=== PATIENT | female | born 1955 | race Caucasian/White ===

== ENCOUNTER 2018-03-24 08:00 | Inpatient (IN) ==
--- NOTE | 2018-03-17 14:58 | EKG Report ---
Test Performed on : 03/17/2018 2:30:49 PM Test Reason : PAT Blood Pressure : / mmHG Vent. Rate : 072 BPM Atrial Rate : 072 BPM P-R Int : 174 ms QRS Dur : 074 ms QT Int : 402 ms P-R-T Axes : 039 034 031 degrees QTc Int : 440 ms Normal sinus rhythm. Cannot rule out Anterior infarct (cited on or before 16-NOV-2017) Abnormal ECG When compared with ECG of 16-NOV-2017 10:20, Vent. rate has decreased BY 35 BPM Nonspecific T wave abnormality no longer evident in Lateral leads Confirmed by Kilo KHAN, Adrian Blanco ([id number]) on 03/18/2018 7:22:44 PM
[2018-03-17 15:12] LABS: URINE SOURCE CLEAN CATCH
[2018-03-17 15:14] LABS: EOS# 0.11 X1000 (0.0-0.7); EOS% 2.4 % (0.0-10.0); HEMOGLOBIN 12.6 g/dL (12.0-16.0); LYMPH# 1.12 X1000 (1.2-3.4); MCH 28.7 PG (27-31); MCHC 33.2 g/dL (33-37); MCV 86.6 FL (81-99); MONO# 0.33 X1000 (0.11-0.59); MONO% 7.1 % (1.7-9.3); MPV 9.8 FL (7.4-10.4); NEUT# 3.11 X1000 (1.4-6.5); NEUT% 66.5 % (42.2-75.2); PLT 269 X1000 (130-400); RBC 4.39 XMIL (4.2-5.4); RDW 13.8 % (11.5-14.5); WBC 4.67 X1000 (4.8-10.8)
[2018-03-17 15:21] LABS: BILIRUBIN URINE NEGATIVE (NEGATIVE); BLOOD URINE NEGATIVE (NEGATIVE); COLOR YELLOW; GLUCOSE URINE NEGATIVE (NEGATIVE); KETONE URINE NEGATIVE (NEGATIVE); LEUKOCYTES URINE NEGATIVE (NEGATIVE); NITRITE URINE NEGATIVE (NEGATIVE); PH URINE 5.5; PROTEIN URINE NEGATIVE (NEGATIVE); TURBIDITY URINE CLEAR (CLEAR); UR EPITHELIAL CELLS <10 /HPF (<10); URINE BACTERIA 1+ /HPF; URINE WBC <10 /HPF (<10); UROBILINOGEN URINE NORMAL (NORMAL)
[2018-03-17 15:24] LABS: INR 0.93; PROTIME 13.2 Seconds (11.0-16.0)
[2018-03-17 15:25] LABS: PTT 32.8 Seconds (22.3-41.8)
[2018-03-17 15:29] LABS: AGAP 13; BUN 9 mg/dL (8-22); CALCIUM 9.7 mg/dL (8.8-10.2); CHLORIDE 98 mmol/L (98-107); COSMO 274; CREATININE 0.6 mg/dL (0.5-0.9); ESTIMATED GFR > 60; GLUCOSE 120 mg/dL (70-104); POTASSIUM 4.4 mmol/L (3.5-5.1); SODIUM 137 mmol/L (136-145); TCO2 26 mmol/L (25-35)
[2018-03-20] MEDS: HUMULIN R SUBQ SCH (12:00)
[2018-03-24] MEDS ORDERED: DIPRIVAN 1% ONE ×2 (08:07)
[2018-03-24] MEDS ORDERED: REGLAN ONE (08:51)
[2018-03-24] MEDS ORDERED: COLACE ONE (08:51)
[2018-03-24] MEDS ORDERED: CELEBREX ONE (08:52)
[2018-03-24] MEDS ORDERED: KEFZOL 2 GM/D5W 2 GM/50 ML IVPB ONE (08:52)
[2018-03-24] MEDS ORDERED: LYRICA ONE (08:52)
[2018-03-24] MEDS ORDERED: LR 1,000 ML ONE (08:52)
[2018-03-24] MEDS ORDERED: ZOFRAN ONE (09:32)
[2018-03-24] MEDS ORDERED: FENTANYL ONE (09:33)
[2018-03-24] MEDS ORDERED: DURAMORPH ONE (09:49)
[2018-03-24] MEDS ORDERED: SODIUM CHLORIDE 0.9% ONE (09:49)
[2018-03-24] MEDS ORDERED: VANCOMYCIN ONE (09:49)
[2018-03-24] MEDS ORDERED: SENSORCAINE-MPF 0.5%/EPI 1:200,000 ONE (09:49)
[2018-03-24] MEDS ORDERED: CYKLOKAPRON 1,000 MG/NS 1,000 MG/100 ML IVPB ONE ×2 (09:49→09:51)
[2018-03-24] MEDS ORDERED: TORADOL ONE (09:49)
[2018-03-24] MEDS ORDERED: EXPAREL 1.3% ONE (09:51)
[2018-03-24] MEDS ORDERED: NEOSPORIN G.U. IRRIGANT ONE (09:51)
[2018-03-24] MEDS ORDERED: MORPHINE ONE ×2 (10:37→13:35)
[2018-03-24 11:07] LABS: URINE SOURCE CATH
[2018-03-24] MEDS ORDERED: OFIRMEV 1000 MG/ISOTONIC SOLN 1,000 MG/100 ML BOTTLE ONE (11:08)
[2018-03-24 11:16] LABS: BILIRUBIN URINE NEGATIVE (NEGATIVE); BLOOD URINE NEGATIVE (NEGATIVE); COLOR YELLOW; GLUCOSE URINE NEGATIVE (NEGATIVE); KETONE URINE NEGATIVE (NEGATIVE); LEUKOCYTES URINE NEGATIVE (NEGATIVE); NITRITE URINE NEGATIVE (NEGATIVE); PH URINE 5.5; PROTEIN URINE NEGATIVE (NEGATIVE); SP GRAVITY URINE 1.008; TURBIDITY URINE CLEAR (CLEAR); UROBILINOGEN URINE NORMAL (NORMAL)
[2018-03-24 11:18] LABS: UR EPITHELIAL CELLS <10 /HPF (<10); URINE BACTERIA NEGATIVE /HPF; URINE WBC <10 /HPF (<10)
[2018-03-24] MEDS ORDERED: NS 1,000 ML ONE (13:32)
--- NOTE | 2018-03-24 14:09 | Diag Imaging Result Doc PS360 ---
EXAM: KNEE 1-2 VIEWS-LEFT 03/24/2018 HISTORY: Rev. Left total Knee TECHNIQUE: Left knee two views COMMENT: There has been revision of the total knee arthroplasty present on 01/02/2018. Otherwise there is no evidence of acute fracture or dislocation or erosion. IMPRESSION: Postsurgical changes. Electronically signed by Berto Childers 03/24/2018 2:06 PM
[2018-03-24] MEDS ORDERED: MORPHINE IV PRN (15:45)
[2018-03-24] MEDS: NS 1,000 ML IV SCH (16:23)
[2018-03-24] MEDS: KEFZOL 2 GM/D5W 2 GM/50 ML IVPB IV SCH (17:05)
[2018-03-24] MEDS: INVEGA PO SCH (22:04)
[2018-03-24] MEDS: PERIDEX MT SCH (22:05)
[2018-03-24] MEDS: NORCO-10 PO PRN (22:05)
[2018-03-24] MEDS: AMBIEN PO SCH (22:13)
[2018-03-25] MEDS: KEFZOL 2 GM/D5W 2 GM/50 ML IVPB IV SCH (02:24)
[2018-03-25] MEDS: LUMIGAN 0.01% OPH SOLUTION BOTH EYES SCH ×2 (02:24→21:59)
[2018-03-25] MEDS: NS 1,000 ML IV SCH ×2 (02:25→18:49)
[2018-03-25] MEDS: NORCO-10 PO PRN ×4 (03:11→22:37)
--- NOTE | 2018-03-25 04:51 | OPERATIVE NOTE ---
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 PROCEDURE: Revision, left total knee arthroplasty with a DePuy Sigma TC3 size 3 femur, a size 40 universal femoral sleeve, a 75 x 14 universal fluted stem, size 3 tibial tray with a 45 metaphyseal sleeve, and a 75 x 12 universal fluted stem, size 3 revision thick tibial tray, and a size 22.5 rotating platform tibial insert. SURGEON: Bret Cartwright MD. DRUG CLERK: MONTSE Valenzuela. FINANCIAL ADMINISTRATION OFFICER: Nadir Adams RN. ANESTHESIA: General. IV FLUIDS: 1200 mL lactated Ringer's. ESTIMATED BLOOD LOSS: 50 mL. TOURNIQUET TIME: 120 minutes at 350 mmHg. COMPLICATIONS: None. INDICATION: The patient is a 62-year-old female with a chronic history of pain and instability of the left knee. Underwent preoperative workup, and did reveal evidence of a failed total knee arthroplasty with instability. She is status post total knee arthroplasty many years ago per Dr. Todd. Given patient's findings, recommendation to proceed with revision of total knee arthroplasty was offered. Risks and benefits of surgery were explained, including the risks of anesthesia, , bleeding, infection, failure to relieve pain, postoperative stiffness, nerve injury, blood clots, and other imponderables. All questions answered. The patient's family wished to proceed with surgery. DETAILS OF OPERATION: Patiently was taken to the operating room and underwent general anesthesia. Patient is placed supine on the operating table. Once adequate anesthesia was obtained, patient's left lower extremity was subsequently prepped and draped in usual sterile fashion. Esmarch was used to exsanguinate the left lower extremity. The tourniquet was inflated to 350 mmHg. A standard anterior incision was made through the previous surgical incision. The incision was carried through into subcutaneous tissue. A standard medial parapatellar arthrotomy was then performed. The fluid was cultured, and a stat Gram stain was negative. Patient has significant black synovial tissue consistent with metallosis. This was excised. Attention was then turned to the distal femur, where femoral component and the osteotome was used circumferentially and it appeared to be loose and was removed without difficulty. In likewise fashion, the femoral component was then removed as well. The patient did have significant wear of the polyethylene medially and was down to the metal. There was a loose polyethylene fragment in the noted patella pouch. After the components had been removed and adequate debridement had been conducted of the synovium, attention was then turned to the proximal tibia. The proximal tibia was resected to remove the cement mantle a few millimeters. After this was performed, sequential reaming was conducted up to a size 12 for the tibia and up to size 14 for the femur. The proximal tibia is then over reamed. Sequential broaching was then performed up a size 45 sleeve and had good fit. This countersunk a few millimeters and resected. The sleeve was then removed. A size 3 tibial tray with the 45 metaphyseal sleeve and a stem was then placed. A size 12 stem was placed. Attention was then turned to the distal femur, where sequential broaching was performed up to a size 40 mm and placed in proper position. The distal femoral cutting block was pinned in position. Distal femoral cut was then performed. A size 3 tibial tray was then placed, and the rotation was set with the knee held flexed at 90 degrees, and spacer block was placed. It was pinned, and anterior, posterior, and chamfer cuts were then made. The sequential box cutting was performed as well. The femoral construct was then assembled on the back table. It was impacted. Trial polyethylene was then placed. The knee was then carried through range of motion, and felt it would benefit from the thick tray and had appropriate termination of the polyethylene. Attention was turned to the patella and had significant hypertrophic-heterotopic bone, which had developed osteophyte along the lateral portion of the patella. This was resected. The hypertrophic synovium was excised. The patella had no obvious loosening. The femoral and tibial components were removed. They were then assembled on the back table, while vancomycin was mixed with cement on back table. Copious irrigation of the wound was performed. The cement was then placed on the proximal tibia. Attention was turned to the tibia, where cement was placed superiorly on the bone, that was followed by the size 3 thick tibial tray, with the 45 metaphyseal sleeve and a 75 x 12 bipolar stem. This is impacted in position and had good fit. Excess cement was removed with a Wray. Cement was placed on the distal femur in standard fashion, the femoral construct with a size 3 femoral component and a size 40 metaphyseal sleeve with the 75 x 14 stem was impacted in position. Trial tibial insert was then placed. Axial loading was maintained while cement cured. After cement had cured, peripheral cement was removed. The 22.5 mm rotating platform tibial insert appeared to correct size. The trial insert was removed. Exparel had been placed in the deep tissue, subcutaneous tissue, and skin while the cement was curing. The wound was copiously once again. A 22.5 mm rotating platform tibial insert was then placed. The knee was carried through range of motion, had good range of motion, and good stability, and good patellofemoral tracking. A 03/16 Hemovac drain was placed. It was not sewn in. Irrigation was performed once again with antibiotic pulsatile lavage. A #1 Vicryl was used to repair the arthrotomy, followed by 2-0 Vicryl to repair the subcutaneous tissue, and skin jana. Adaptic, sterile 4 x 4, Webril, and cryounit were applied to the left lower extremity. Patient tolerated the procedure well with no complications. Transferred to recovery room in stable condition. cc: Bret Cartwright MD
[2018-03-25] MEDS: MORPHINE IV PRN ×2 (04:52→18:19)
[2018-03-25] MEDS: XARELTO PO SCH (06:38)
[2018-03-25 07:16] LABS: AGAP 12; BUN 11 mg/dL (8-22); CALCIUM 8.2 mg/dL (8.8-10.2); CHLORIDE 98 mmol/L (98-107); COSMO 272; CREATININE 0.7 mg/dL (0.5-0.9); ESTIMATED GFR > 60; GLUCOSE 140 mg/dL (70-104); POTASSIUM 3.7 mmol/L (3.5-5.1); SODIUM 135 mmol/L (136-145); TCO2 25 mmol/L (25-35)
[2018-03-25 07:35] LABS: HEMATOCRIT 30.5 % (37.0-47.0)
--- NOTE | 2018-03-25 07:46 | PROGRESS NOTE ---
DATE: 03/25/2018 SUBJECTIVE: The patient is a 62-year-old female who is 1 day status post revision left total knee arthroplasty. She is currently resting comfortably. OBJECTIVE: The patient's left lower extremity dressing is intact. Calf is soft. She has active dorsiflexion and plantar flexion. She is neurovascularly intact distally. LABORATORY DATA: Her hemoglobin and hematocrit are pending. IMPRESSION: Postoperative day #1, status post revision left total knee arthroplasty. PLAN: At this point, will change her dressing and discontinue her drain and Godinez. Will begin mobilization with Physical Therapy. Will consult Supervisor Ovens for evaluation for inpatient rehabilitation. cc: Bret Cartwright MD
[2018-03-25] MEDS: GLUCOPHAGE PO SCH ×2 (09:00→16:10)
[2018-03-25] MEDS: COGENTIN PO SCH ×3 (09:01→21:59)
[2018-03-25] MEDS: PERIDEX MT SCH ×2 (09:01→22:00)
[2018-03-25] MEDS: TENORMIN PO SCH ×2 (11:34→16:10)
[2018-03-25] MEDS ORDERED: LOPRESSOR IV ONE (16:38)
[2018-03-25 17:02] LABS: ALLEN TEST YES; BE 1.1 mmoll (-3.0-3.0); BLOOD TYPE ARTERIAL; HCO3-(ACT) 25.8 mmoll (20.0-26.0); METHB 1.1 % (0.0-1.5); O2HB 96.5 % (95.0-99.0); PCO2(98.6) 36 mmHg (35-45); PO2(98.6) 111 mmHg (60-100); SAMPLE BLOOD; SAO2 99.5 % (95.0-100.0); THB 10.2 g/dL (11.5-17.4); pH(98.6) 7.45 (7.35-7.45)
[2018-03-25 17:04] LABS: MODALITY CANNULA
[2018-03-25 18:13] LABS: CK INDEX 1.5 (0.0-2.5); CK-MB 3.57 ng/mL (0.0-5.0)
[2018-03-25] MEDS ORDERED: NS 1,000 ML IV SCH (18:15)
[2018-03-25] MEDS: INVEGA PO SCH (21:58)
[2018-03-25] MEDS: AMBIEN PO SCH (21:59)
[2018-03-25] MEDS: HUMULIN R SUBQ SCH (22:14)
--- NOTE | 2018-03-26 06:16 | CONSULTATION ---
DATE OF CONSULTATION: 03/25/2018 SUBJECTIVE: I was asked to see this 63-year-old white female who had a left knee replacement by Dr. Cartwright. Postoperatively, the patient had hypertension, tachycardia. Nurses reported possible SVT. EKG was obtained. It looks like sinus tachycardia. Upon questioning patient denies of any chest pain, shortness of breath. Cardiac enzymes were negative. EKG showed nothing acute for ischemia. D-dimer slightly positive. As a result, a medical consult was obtained. PAST MEDICAL HISTORY: 1. Type 2 diabetes. 2. Morbid obesity. 3. Metabolic syndrome. 4. Acid reflux disease. 5. Glaucoma. 6. Hypertension. 7. Hyperlipidemia. 8. Schizophrenia. 9. Sleep apnea. PAST SURGICAL HISTORY: 1. Bilateral cataract surgery. 2. Cholecystectomy with open procedure. 3. Tubal ligation. 4. Right shoulder surgery. 5. Bilateral knee arthroplasty. 6. Left shoulder replacement. ALLERGIES: Codeine. SOCIAL HISTORY: , 3 kids, disabled housewife. No smoking, no alcohol. FAMILY HISTORY: Father of old age at 95, mom is 88 years old with diabetes and hypertension. MEDICATIONS: 1. Ambien 10 mg at bedtime. 2. Invega 6 mg at bedtime. 3. Cogentin 1 mg p.o. t.i.d. 4. Lumigan 1 drop at bedtime. 5. Tenormin 25 mg daily. 6. Metformin 500 p.o. b.i.d. 7. [place] as needed. 8. Xarelto 10 mg daily. 9. Morphine p.r.n. pain. REVIEW OF SYSTEMS: HEENT: No headache. No vision problem. No earache. No sore throat. Neck: No goiter. No lymphadenopathy. No bruit. Cardiopulmonary: No chest pain, shortness of breath. GI: No nausea, vomiting, abdominal pain. Postop pain on the left side. No swelling of feet. Neurologic: No focal symptoms of weakness. PHYSICAL EXAMINATION: Vital signs: Temperature is 98 degrees, tachycardic. Vitals are stable. Heavy set. HEENT: Atraumatic, normocephalic. Pupils equal, react to light. Nose and throat within normal limits. Neck: Supple. No lymphadenopathy. Chest: Bilateral air entry. Heart: Sounds are regular. Tachycardic. Abdomen: Belly is soft, obese, nontender. Good bowel sounds. No masses palpable. Extremities: Status post left knee surgery. Neurologic: No neurological deficits. LABS: Hemoglobin 10, hematocrit 30, CBC is normal. D-dimer 2.37, ABG: pH is 7.45, pCO2 36, pO2 111 on 28%. SMA 7: Sodium 135, potassium 3.7, BUN 16. Creatinine 0.7, glucose 140, calcium 8.2. Cardiac enzymes were negative. Urinalysis is clear. ASSESSMENT AND PLAN: 1. Postoperative day 1 status post left knee replacement complicated by tachycardia and hypertension. Possible hypovolemia. Plan is IV fluids and check the CBC in the morning. 2. Positive D-dimer. Check the venous Dopplers in both legs. Clinically low suspicious for PE . 3. Rule out IL. EKG is negative. Follow up on cardiac enzymes. We will continue to monitor on telemetry. Will give metoprolol 5 mg since she did not get Tenormin this morning. 4. Paranoid schizophrenia. On Cogentin and Invega. Gentle hydration. 5. Type 2 diabetes on metformin with insulin sliding-scale coverage. 6. Deep venous thrombosis prophylaxis on Xarelto. Once again, thanks for the kind referral. Once she is stable patient is planning to go to [facility] for rehab. cc: MD Bret Landry MD
[2018-03-26] MEDS: HUMULIN R SUBQ SCH ×3 (06:47→16:15)
[2018-03-26] MEDS: XARELTO PO SCH (06:47)
[2018-03-26 06:49] LABS: BASO# 0.01 X1000 (0.0-0.2); BASO% 0.2 % (0.0-0.8); EOS# 0.09 X1000 (0.0-0.7); EOS% 1.6 % (0.0-10.0); HEMATOCRIT 28.7 % (37.0-47.0); HEMOGLOBIN 9.2 g/dL (12.0-16.0); LYMPH# 0.81 X1000 (1.2-3.4); LYMPH% 14.2 % (20.5-51.1); MCHC 32.1 g/dL (33-37); MCV 87.5 FL (81-99); MONO# 0.52 X1000 (0.11-0.59); MONO% 9.1 % (1.7-9.3); MPV 9.6 FL (7.4-10.4); NEUT# 4.29 X1000 (1.4-6.5); NEUT% 74.9 % (42.2-75.2); PLT 187 X1000 (130-400); RBC 3.28 XMIL (4.2-5.4); RDW 14.1 % (11.5-14.5); WBC 5.72 X1000 (4.8-10.8)
--- NOTE | 2018-03-26 07:00 | PROGRESS NOTE ---
DATE: 03/26/2018 SUBJECTIVE: The patient is a pleasant 62-year-old female who is 2 days status post revision left total knee arthroplasty. She is currently resting comfortably this morning. The patient did experience episode of supraventricular tachycardia yesterday afternoon. She responded with medication and feels better this morning. PHYSICAL EXAMINATION: Patient's vital signs are stable. Her labs are pending this morning. Left lower extremity, her wound looks good. There are no signs or symptoms of infection. Calf is soft. She has active dorsiflexion and plantar flexion. Her intraoperative cultures are negative. IMPRESSION: Postoperative day #2, status post revision of left total knee arthroplasty. PLAN: At this point, we appreciate Dr. Feliz's assistance. We will continue awaiting further workup. It is felt the patient could benefit from inpatient rehabilitation. She is currently being evaluated for this. cc: Bret Cartwright MD
[2018-03-26 07:20] LABS: AGAP 11; BUN 9 mg/dL (8-22); CHLORIDE 101 mmol/L (98-107); CK TOTAL 191 U/L (24-173); COSMO 272; CREATININE 0.6 mg/dL (0.5-0.9); ESTIMATED GFR > 60; GLUCOSE 160 mg/dL (70-104); POTASSIUM 4.1 mmol/L (3.5-5.1); SODIUM 135 mmol/L (136-145); TCO2 23 mmol/L (25-35)
--- NOTE | 2018-03-26 07:31 | EKG Report ---
Test Performed on : 03/26/2018 06:48:23 AM Test Reason : increase heart rate Blood Pressure : / mmHG Vent. Rate : 108 BPM Atrial Rate : 108 BPM P-R Int : 190 ms QRS Dur : 074 ms QT Int : 342 ms P-R-T Axes : 049 024 018 degrees QTc Int : 458 ms Sinus tachycardia. Nonspecific T wave abnormality Abnormal ECG When compared with ECG of 25-MAR-2018 16:13, (Unconfirmed) T wave inversion more evident in Anterior leads Confirmed by Kilo KHAN, Adrian Blanco ([id number]) on 03/27/2018 10:43:07 AM
[2018-03-26] MEDS: COGENTIN PO SCH ×3 (09:38→18:00)
[2018-03-26] MEDS: GLUCOPHAGE PO SCH ×2 (09:38→18:00)
[2018-03-26] MEDS: TENORMIN PO SCH (09:38)
[2018-03-26] MEDS: PERIDEX MT SCH ×2 (09:38→22:13)
[2018-03-26] MEDS: NORCO-10 PO PRN ×2 (09:39→22:13)
--- NOTE | 2018-03-26 10:33 | EKG Report ---
Test Performed on : 03/25/2018 4:13:14 PM Test Reason : fast high rate Blood Pressure : / mmHG Vent. Rate : 132 BPM Atrial Rate : 133 BPM P-R Int : 180 ms QRS Dur : 066 ms QT Int : 390 ms P-R-T Axes : 000 038 042 degrees QTc Int : 577 ms Sinus tachycardia. Low voltage QRS Borderline ECG When compared with ECG of 17-MAR-2018 14:30, Vent. rate has increased BY 60 BPM Confirmed by Kilo KHAN, Adrian Blanco ([id number]) on 03/27/2018 10:39:43 AM
[2018-03-26] MEDS: MORPHINE IV PRN (13:39)
[2018-03-26] MEDS: NS 1,000 ML IV SCH (22:12)
[2018-03-26] MEDS: LUMIGAN 0.01% OPH SOLUTION BOTH EYES SCH (22:13)
[2018-03-26] MEDS: INVEGA PO SCH (22:14)
[2018-03-26] MEDS: AMBIEN PO SCH (22:14)
--- NOTE | 2018-03-27 00:02 | PROGRESS NOTE ---
DATE: 03/26/2018 SUBJECTIVE: The patient is doing a little better postop day 2. No chest pain. No shortness of breath. Venous Doppler showed soleal thrombosis, not extending into posterior tibial vein. EXAMINATION: Vital Signs: Temperature is 98 degrees. Heart rate is 104. Vitals are stable. General Appearance: Heavy-set. Chest: Clear. Heart: Sounds are regular. Abdomen: Belly is soft, nontender. Status post left knee scar present. INVESTIGATIONS: CBC: White cell count 5.7, hematocrit 28, platelets 187,000. SMA-7: Sodium 135, potassium 4.1, chloride 101, BUN 9, creatinine 0.6, glucose 160. ASSESSMENT AND PLAN: 1. Status post left knee replacement, postop day 2. 2. Soleal thrombosis. Continue on Xarelto. 3. Tachycardia, sinus probably, from the chronic anxiety. Continue on Tenormin. Continue IV fluids. 4. Type 2 diabetes, on metformin. Waiting for placement in [facility]. Continue present medical therapy. LEVEL OF DOCUMENTATION: 25 minutes. cc: MD Bret Landry MD
[2018-03-27] MEDS: HUMULIN R SUBQ SCH ×5 (01:12→20:34)
[2018-03-27] MEDS: MORPHINE IV PRN ×2 (05:13→12:45)
[2018-03-27] MEDS: ZOFRAN PO PRN (05:16)
[2018-03-27] MEDS: XARELTO PO SCH (05:16)
[2018-03-27 06:03] LABS: HEMATOCRIT 28.2 % (37.0-47.0); HEMOGLOBIN 9.2 g/dL (12.0-16.0)
[2018-03-27] MEDS: NORCO-10 PO PRN ×2 (09:43→22:03)
[2018-03-27] MEDS: GLUCOPHAGE PO SCH ×2 (09:44→17:42)
[2018-03-27] MEDS: PERIDEX MT SCH ×2 (09:44→21:44)
[2018-03-27] MEDS: TENORMIN PO SCH (09:44)
[2018-03-27] MEDS: COGENTIN PO SCH ×3 (09:47→17:42)
[2018-03-27] MEDS: NS 1,000 ML IV SCH (12:24)
--- NOTE | 2018-03-27 14:06 | PROGRESS NOTE ---
DATE: 03/27/2018 Ms. Gant seen status post revision left total knee replacement. At the present time her incision is clean and dry. There is no redness or warmth. She is gradually improving. She does have some further workup with medical difficulties per Dr. Feliz. Once she is medically cleared she can be transferred to rehab center or home with home health. From an orthopedic standpoint, she can be transferred at any time. We will ask the social staff worker start working on this, when she is cleared by Dr. Feliz can be discharged or transferred from the hospital. cc: MD Bret Tomlinson MD
--- NOTE | 2018-03-27 14:32 | PROGRESS NOTE ---
DATE: 03/27/2018 SUBJECTIVE: Postop day 3, doing very well, no complaints. No chest pain or shortness of breath. OBJECTIVE: Temperature is 98, pulse 88. Vitals are stable. HEENT: Within normal limits. Chest is clear. Heart sounds are regular. Belly is soft, nontender. Good bowel sounds. No obvious neurological deficits. DIAGNOSTIC DATA: CBC shows hematocrit 28. ASSESSMENT AND PLAN: 1. Postop day 3 of left knee arthroplasty, stable. Continue on IV fluids. 2. Insomnia, on Ambien. 3. Diabetes, on sliding scale with insulin protocol. Continue present medical therapy. 4. DVT in the left leg, soleus, on Xarelto. 5. The patient is undergoing physical therapy. We will check the orthostatic blood pressure. Waiting for rehab placement at [facility] on Thursday. 6. Continue present treatment. Level of documentation is 15 minutes. cc: MD Bret Landry MD
[2018-03-27] MEDS: INVEGA PO SCH (21:44)
[2018-03-27] MEDS: LUMIGAN 0.01% OPH SOLUTION BOTH EYES SCH (21:45)
[2018-03-27] MEDS: AMBIEN PO SCH (21:45)
[2018-03-28] MEDS: MORPHINE IV PRN ×3 (00:18→09:14)
[2018-03-28] MEDS: ZOFRAN PO PRN (00:19)
[2018-03-28] MEDS: NORCO-10 PO PRN ×3 (02:27→14:29)
[2018-03-28] MEDS: NS 1,000 ML IV SCH (02:28)
[2018-03-28] MEDS: HUMULIN R SUBQ SCH ×4 (06:23→22:26)
[2018-03-28] MEDS: XARELTO PO SCH (06:43)
--- NOTE | 2018-03-28 08:28 | PROGRESS NOTE ---
DATE: 03/28/2018 SUBJECTIVE: The patient is a pleasant, 62-year-old female who is 4 days status post revision left total knee arthroplasty. She has been resting comfortably. She has no complaints this morning. PHYSICAL EXAMINATION: Patient's left lower extremity wound dressing is intact. Calf is soft. Active dorsiflexion and plantar flexion. LABORATORY DATA: Her hemoglobin and hematocrit from yesterday were 9.2 and 28.2. IMPRESSION: Postoperative day number 4 status post revision left total knee arthroplasty. PLAN: The patient will continue with physical therapy. Awaiting bed availability at [facility], would anticipate tomorrow. cc: Bret Cartwright MD MTDD
[2018-03-28] MEDS: TENORMIN PO SCH (09:10)
[2018-03-28] MEDS: GLUCOPHAGE PO SCH ×2 (09:10→17:54)
[2018-03-28] MEDS: COGENTIN PO SCH ×3 (09:10→17:55)
[2018-03-28] MEDS: PERIDEX MT SCH ×2 (09:10→22:27)
--- NOTE | 2018-03-28 15:10 | PROGRESS NOTE ---
DATE: 03/28/2018 SUBJECTIVE: The patient is doing better and she is not offering any complaints. She is anxious to go back to the rehab at [facility] tomorrow. EXAMINATION: Vital Signs: Temp is 98. Vitals are stable. HEENT: Within normal limits. Chest: Chest is clear. Heart sounds are regular. Abdomen: Belly is soft, nontender. No edema. LABORATORY: Hematocrit 28.2. Blood sugar is doing very well. ASSESSMENT AND PLAN: 1. Status post 4th day of revision left knee arthroplasty. Hemodynamics are stable. 2. Deep vein thrombosis in the soleus vein. Continue on Xarelto for at least for a month. 3. Tachycardia, is improving. 4. Type 2 diabetes stable and currently stable. Continue present medical therapy. We will go back to [facility] tomorrow on follow-up level. LEVEL OF DOCUMENTATION: 15 minutes. cc: MD Bret Landry MD MTDD
[2018-03-28] MEDS: AMBIEN PO SCH (22:25)
[2018-03-28] MEDS: INVEGA PO SCH (22:26)
[2018-03-28] MEDS: LUMIGAN 0.01% OPH SOLUTION BOTH EYES SCH (22:27)
[2018-03-28] MEDS ORDERED: CALMOSEPTINE OINTMENT TOP PRN (22:53)
[2018-03-29] MEDS: NORCO-10 PO PRN ×3 (01:05→12:18)
[2018-03-29] MEDS: XARELTO PO SCH (05:23)
[2018-03-29] MEDS: HUMULIN R SUBQ SCH ×2 (06:19→11:40)
--- NOTE | 2018-03-29 07:58 | DISCHARGE SUMMARY ---
ADMISSION DATE: 03/24/2018 DISCHARGE DATE: 03/29/2018 ADMITTING DIAGNOSES: 1. 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 2. Type 2 diabetes. 3. Schizophrenia. DISCHARGE DIAGNOSES: 1. 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 2. Type 2 diabetes. 3. Schizophrenia. 4. Status post revision left total knee arthroplasty. BRIEF HISTORY: The patient is a pleasant, 62-year-old female, who is status post left total knee arthroplasty many years ago per Dr. Todd. The patient has had some increasing discomfort and giving way of her knee over the last year or so. It seems to be worsening. X-ray evaluation was obtained and revealed findings consistent with instability of the knee and failed total knee arthroplasty. Given the patient's findings, the recommendation was to proceed with revision left total knee arthroplasty. Risks and benefits of surgery were explained, including the risks of anesthesia, , bleeding, infection, failure to relieve pain, postoperative stiffness, nerve injury, blood clots, and other imponderables. All questions were answered. The patient wished to proceed with surgery. HOSPITAL COURSE AND TREATMENT: The patient underwent left total knee arthroplasty. She tolerated the procedure well. On postoperative day #2, the patient did develop some tachycardia. Dr. Feliz, who is her primary care physician, was consulted to assist with her medical management. Underwent workup and was negative for PA, and she responded to metoprolol. She did undergo a Doppler, which ruled out PA and PE. She did undergo a Doppler ultrasound, which revealed a DVT in the soleus vein, and the recommendation was to continue with Xarelto for 1 month. By postoperative day #3, her hemoglobin and hematocrit had stabilized to 9.2 and 28.2. She was slow to mobilize with Physical Therapy, and it was felt that the patient would benefit from inpatient rehabilitation. The patient and family were agreeable to this. Prior to discharge, the patient is afebrile, tolerating a regular diet, her vital signs are stable, and the wound looked good. There are no signs or symptoms of infection. DISCHARGE MEDICATIONS: 1. Ethel 10 mg 1 p.o. every 4 hours p.r.n. pain. 2. Xarelto 10 mg p.o. daily x1 month. For remaining medications, please see medication list. DISCHARGE INSTRUCTIONS: 1. The patient will be discharged for inpatient rehabilitation at [facility]. 2. Consult Physical Therapy with full weightbearing to left lower extremity, and range of motion and gait training per total knee protocol. 3. Discontinue jana on 04/07/2018. 4. Follow up in the office after discharge from [facility]. cc: Bret Cartwright MD
[2018-03-29] MEDS: GLUCOPHAGE PO SCH (08:33)
[2018-03-29] MEDS: TENORMIN PO SCH (08:33)
[2018-03-29] MEDS: COGENTIN PO SCH (08:34)
[2018-03-29] MEDS ORDERED: CALMOSEPTINE OINTMENT TOP SCH (09:00)
[2018-03-29 11:18] VITALS: BP 100/50
[2018-03-29] MEDS: PERIDEX MT SCH (11:46)
--- NOTE | 2018-03-29 19:12 | PROGRESS NOTE ---
DATE: 03/29/2018 SUBJECT: Patient is doing very well. Dr. Cartwright is planning to discharge to the [facility]. REVIEW OF SYSTEMS: None reported. EXAMINATION: Temperature is 98 degrees, vitals are stable.HEENT: Within normal limits. Neck: Supple. No lymphadenopathy. Chest: Bilateral air entry. Heart: Sounds are regular. Belly: Soft, nontender. No neurological deficits. ASSESSMENT AND PLAN: 1. Status post left knee revision arthroplasty stable, continue rehab. 2. Schizophrenia on Invega 6 mg at bedtime and Cogentin. 3. Glaucoma stable. 4. Hypertension on Tenormin. 5. Type 2 diabetes on metformin. DVT in the left leg very small soleal vein. Continue on Xarelto. 6. Chronic insomnia Ambien and acid reflux disease on Prilosec as needed and follow up as an outpatient. cc: MD Bret Landry MD
--- NOTE | 2018-04-01 12:08 | Extremity Venous Study ---
PROCEDURE NAME: Venous U/S Bilateral Legs - 03/26/2018 NAME OF STUDY: Bilateral lower extremity venous duplex and Color flow imaging study using a GE Vivid E9 ultrasound system with a 9L-D transducer. AGE AND GENDER: A 62-year-old female. CARROTER: Noy Vo RVT. REFERRING PHYSICIAN: Jose Feliz MD. INDICATIONS: Edema, shortness of breath, status post left knee surgery, rule out deep venous thrombosis. FINDINGS: The right common femoral vein and its branches, deep, and superficial femoral veins were satisfactorily imaged. They had flow through them and were compressible. Right popliteal vein and the deep veins below the right knee were all compressible and had flow through them. Superficial veins of the right lower extremity were compressible throughout their length. The left common femoral vein and its branches, deep and superficial femoral veins were also satisfactorily imaged. They had flow through them and were compressible. Left popliteal vein was compressible throughout its length and had flow through them. The left soleal vein, mid calf appeared to have a clot within it, but this clot did not propagate into 1 of the larger deep veins such as the popliteal vein. The superficial veins the left lower extremity were compressible throughout their length. INTERPRETATION: Acute deep venous thrombosis involving one of the small soleal veins, mid calf, left lower extremity. This deep venous thrombosis did not propagate into 1 of the larger deep veins such as the popliteal vein. The right lower extremity was without evidence of deep or superficial venous thrombosis. cc: MD Rommel Rocha MD Robert S. Tapscott, MD
== END 2018-03-29 12:19 | DRG 467 ==
LOC: SURHOLD 08:18 → 4N 14:11
PROVIDERS: ADMIT Orthopaedic Surgery Adult Reconstructive Orthopaedic Surgery; ATTEND Orthopaedic Surgery Adult Reconstructive Orthopaedic Surgery
CPT/HCPCS: 73560; 80048; 81001; 82550; 82553; 82805; 82948; 84484; 85014; 85018; 85025; 85379; 85610; 85730; 86850; 86900; 86901; 87070; 87075; 87205; 93005; 93010; 93970; 94761; 94799; 97110; 97162; 97530; A9270; C9290; J0131; J0690; J1885; J2270; J2274; J2275; J2405; J3010; J3370; J7030; J7120; Q9974; XXXXX

== ENCOUNTER 2019-03-16 02:07 | Inpatient (IN) ==
[2019-03-07 09:38] LABS: URINE SOURCE CLEAN CATCH
--- NOTE | 2019-03-07 09:55 | EKG Report ---
Test Performed on : 03/07/2019 09:29:52 AM Test Reason : pat Blood Pressure : / mmHG Vent. Rate : 125 BPM Atrial Rate : 125 BPM P-R Int : 166 ms QRS Dur : 076 ms QT Int : 298 ms P-R-T Axes : 059 036 034 degrees QTc Int : 430 ms Sinus tachycardia. Inferior infarct , age undetermined Abnormal ECG When compared with ECG of 26-MAR-2018 06:48, Inferior infarct is now present Nonspecific T wave abnormality, improved in Inferior leads T wave inversion no longer evident in Anterior leads Confirmed by Willard KHAN, Drew ([id number]) on 03/07/2019 7:22:30 PM
[2019-03-07 10:07] LABS: PROTIME 13.3 Seconds (11.0-16.0)
[2019-03-07 10:08] LABS: BASO# 0.02 X1000 (0.0-0.2); BASO% 0.3 % (0.0-0.8); EOS# 0.05 X1000 (0.0-0.7); EOS% 0.6 % (0.0-10.0); HEMATOCRIT 41.4 % (37.0-47.0); HEMOGLOBIN 13.9 g/dL (12.0-16.0); LYMPH# 1.09 X1000 (1.2-3.4); LYMPH% 13.9 % (20.5-51.1); MCH 29.8 PG (27-31); MCHC 33.6 g/dL (33-37); MCV 88.8 FL (81-99); MONO# 0.42 X1000 (0.11-0.59); MONO% 5.3 % (1.7-9.3); MPV 9.6 FL (7.4-10.4); NEUT# 6.29 X1000 (1.4-6.5); NEUT% 79.9 % (42.2-75.2); PLT 301 X1000 (130-400); PTT 35.4 Seconds (22.3-41.8); RBC 4.66 XMIL (4.2-5.4); RDW 13.6 % (11.5-14.5); WBC 7.87 X1000 (4.8-10.8)
[2019-03-07 10:09] LABS: BILIRUBIN URINE NEGATIVE (NEGATIVE); BLOOD URINE NEGATIVE (NEGATIVE); COLOR YELLOW; GLUCOSE URINE NEGATIVE (NEGATIVE); KETONE URINE NEGATIVE (NEGATIVE); LEUKOCYTES URINE MODERATE (NEGATIVE); NITRITE URINE NEGATIVE (NEGATIVE); PROTEIN URINE NEGATIVE (NEGATIVE); TURBIDITY URINE CLEAR (CLEAR); UROBILINOGEN URINE NORMAL (NORMAL)
[2019-03-07 10:14] LABS: HEMOGLOBIN A1C 5.6 % (4.8-6.0)
[2019-03-07 10:21] LABS: UR EPITHELIAL CELLS <10 /HPF (<10); URINE BACTERIA 1+ /HPF
[2019-03-07 10:27] LABS: URINE CASTS NONE SEEN; URINE CRYSTALS NONE SEEN; URINE SMALL ROUND CELLS NONE SEEN; URINE YEAST PRESENT
[2019-03-07 10:47] LABS: CALCIUM 9.9 mg/dL (8.8-10.2); CREATININE 1.2 mg/dL (0.5-0.9); POTASSIUM 3.8 mmol/L (3.5-5.1)
[2019-03-16] MEDS ORDERED: DIPRIVAN 1% ONE (08:48)
[2019-03-16] MEDS ORDERED: FENTANYL ONE (08:49)
[2019-03-16] MEDS ORDERED: CELEBREX ONE (10:19)
[2019-03-16] MEDS ORDERED: KEFZOL 1 GM/D5W 2 GM/100 ML IVPB ONE (10:19)
[2019-03-16] MEDS ORDERED: LR 1,000 ML ONE (10:19)
[2019-03-16] MEDS ORDERED: REGLAN ONE (10:19)
[2019-03-16] MEDS ORDERED: LYRICA ONE (10:19)
[2019-03-16] MEDS ORDERED: PEPCID ONE (10:19)
[2019-03-16] MEDS ORDERED: COLACE ONE (10:19)
[2019-03-16] MEDS ORDERED: SODIUM CHLORIDE 0.9% ONE (10:48)
[2019-03-16] MEDS ORDERED: CYKLOKAPRON 1,000 MG/NS 1,000 MG/100 ML IVPB ONE ×2 (10:48→10:57)
[2019-03-16] MEDS ORDERED: MARCAINE 0.25% PF ONE (10:48)
[2019-03-16] MEDS ORDERED: DURAMORPH ONE (10:48)
[2019-03-16] MEDS ORDERED: VANCOMYCIN ONE (10:48)
[2019-03-16] MEDS ORDERED: EXPAREL 1.3% ONE (10:48)
[2019-03-16] MEDS ORDERED: NEOSPORIN G.U. IRRIGANT ONE (10:48)
[2019-03-16] MEDS ORDERED: TORADOL ONE (10:48)
[2019-03-16] MEDS ORDERED: DECADRON ONE (12:08)
[2019-03-16] MEDS ORDERED: OFIRMEV 1000 MG/ISOTONIC SOLN 1,000 MG/100 ML BOTTLE ONE (12:08)
[2019-03-16] MEDS ORDERED: ZOFRAN ONE (12:08)
[2019-03-16 12:17] LABS: URINE SOURCE CATH
[2019-03-16 12:20] LABS: BILIRUBIN URINE NEGATIVE (NEGATIVE); BLOOD URINE NEGATIVE (NEGATIVE); COLOR YELLOW; GLUCOSE URINE NEGATIVE (NEGATIVE); KETONE URINE NEGATIVE (NEGATIVE); LEUKOCYTES URINE NEGATIVE (NEGATIVE); NITRITE URINE NEGATIVE (NEGATIVE); PH URINE 7.5; PROTEIN URINE NEGATIVE (NEGATIVE); TURBIDITY URINE CLEAR (CLEAR); UR EPITHELIAL CELLS <10 /HPF (<10); URINE BACTERIA NEGATIVE /HPF; URINE RBC <10 /HPF (<10); URINE WBC <10 /HPF (<10); UROBILINOGEN URINE NORMAL (NORMAL)
[2019-03-16] MEDS ORDERED: NS 1,000 ML ONE (14:06)
[2019-03-16] MEDS: DILAUDID ONE ×2 (14:07→14:15)
--- NOTE | 2019-03-16 14:55 | Diag Imaging Result Doc PS360 ---
EXAM: KNEE 1-2 VIEWS-RIGHT 03/16/2019 HISTORY: right TKA TECHNIQUE: Right knee two views COMMENT: There is a total knee arthroplasty. There is no evidence of acute fracture or other definite bony abnormality. IMPRESSION: Postsurgical change. Electronically signed by Berto Childers 03/16/2019 2:53 PM
[2019-03-16] MEDS ORDERED: MORPHINE IV PRN ×3 (15:15)
[2019-03-16] MEDS ORDERED: ZOFRAN PO PRN (15:15)
[2019-03-16] MEDS ORDERED: OXY IR PO PRN (15:15)
[2019-03-16] MEDS: NS 1,000 ML IV SCH (18:11)
[2019-03-16] MEDS: TYLENOL PO SCH (19:39)
[2019-03-16] MEDS: COGENTIN PO SCH (19:40)
[2019-03-16] MEDS: INVEGA PO SCH (19:41)
[2019-03-16] MEDS: PERIDEX MT SCH (19:42)
[2019-03-16] MEDS: KEFZOL 2 GM/D5W 2 GM/50 ML IVPB IV SCH (19:42)
[2019-03-16] MEDS: LUMIGAN 0.01% OPH SOLUTION BOTH EYES SCH (19:42)
[2019-03-16] MEDS: OXY IR PO PRN (19:44)
--- NOTE | 2019-03-16 21:01 | OPERATIVE NOTE ---
PROCEDURE DATE: 03/16/2019 PREOPERATIVE DIAGNOSIS: Failed right total knee arthroplasty. POSTOPERATIVE DIAGNOSIS: Failed right total knee arthroplasty. OPERATION: Revision of right total knee arthroplasty with TC3 size 3 femur with a size 40 femoral sleeve, a 75 x 14 universal fluted stem, a size 3 tibial tray, with a size 45 metaphyseal sleeve, a 75 x 12 universal fluted stem, and 20 mm rotating platform tibial insert. SURGEON: Bret Cartwright MD. BOARDER STEAM: MONTSE Craft, who was necessary for proper traction and proper manipulation of the extremity during the case, and improved efficiency. SECOND CLAY BURNER: Nadir Adams RN. ANESTHESIA: Spinal. INTRAVENOUS FLUID: Lactated Ringer's 1400 mL. ESTIMATED BLOOD LOSS: 50 mL. COMPLICATIONS: None. INDICATION: The patient is a pleasant, 63-year-old female, who is status post right total knee arthroplasty per Dr. Todd many years ago. The patient has developed some pain over the last few years, and x-rays and bone were obtained, revealed findings consistent with the loosening of the implant. Given patient's findings, recommendation to proceed with revision arthroplasty was offered. Risks and benefits of surgery were explained, including the risks of anesthesia, , bleeding, infection, failure to relieve pain, postoperative stiffness, nerve injury, blood clots, and other imponderables. All questions answered, and patient and family wished to proceed with surgery. DETAILS OF OPERATION: Patient was taken to the operating room and underwent spinal anesthesia. After adequate anesthesia was obtained, patient was placed supine on the operating table. Right lower extremity was subsequently prepped and draped in usual sterile fashion. An Esmarch was used to exsanguinate the right lower extremity. The tourniquet was inflated to 350 mmHg. A standard anterior incision was made through the previous surgical incision and extended both proximally and distally. Medial and lateral skin envelopes were developed. Standard medial parapatellar arthrotomy was then performed. Patella fat pad was excised. The patient did have some dark brownish synovial tissue consistent with some reaction from poly wear. After adequate retraction had been performed, the tibial insert was removed. Attention was then turned to the femur. Circumferential osteotome was used circumferentially to remove the implant. This was removed without difficulty. In likewise fashion, the tibial tray was removed with an osteotome. After this had been performed and removal of the cement, a starting reamer was then passed. Sequential reaming up to a size 12 for the tibia and up to a 14 for the femur. It was then over reamed on the proximal tibia. Sequential broaching was performed up to a size 45 metaphyseal sleeve. It had good fit. A size 3 tibial tray with a 45 metaphyseal sleeve and stem was then placed into the tibia. Attention was then turned to the femur. This was over reamed distally. Sequential broaching was then performed up to a size 40. This remained in position. The guide was then placed on the broach. The distal femoral cutting block was pinned into position and distal femoral cut was then performed. Chamfer block was then placed, rotation was set with a spacer block, and the knee held in 90 degrees of flexion. The anterior, posterior, and chamfer cuts were then made. The patient did require some augmentation 8 mm distal laterally, 4 mm medially, and 4 mm posteriorly on the femoral component on the trial. This was assembled on the back table and the incision broach was removed. The femoral construct was then impacted. The knee was then carried through range of motion with good range of motion and good soft tissue balancing. The implants were then removed. Copious irrigation was performed with antibiotic pulsatile lavage. Vancomycin was mixed with cement on back table. The femoral and tibial constructs were then assembled on the back table. Cement was then placed superiorly on the proximal tibia and the tibial construct was then impacted. Peripheral cement was removed with a Reydon. Cement was then placed on the distal aspect of the femur in standard fashion and the femoral construct was impacted. Trial tibial insert was then placed in full extension and axial load was maintained while cement cured. Attention was then turned to the patella. Patient had some bony overgrowth which was removed with a small saw, as well as a small osteotome, and some synovial tissue was excised as well. After cement had cured, the 20 mm rotating platform tibial insert appeared to be the correct size. This was then removed. Exparel was placed in deep posterior capsule, remaining deep tissue, as well as subcutaneous tissue. A 20 mm rotating platform tibial insert was then placed. The knee was then carried through range of motion, with good range of motion, good soft tissue balance, good patellofemoral tracking. A 1/8 Hemovac drain was placed and was not sewn in. Copious irrigation was then performed once again with antibiotic pulsatile lavage. Then, 1-0 Vicryl was used to repair arthrotomy, followed by 2-0 Vicryl to repair subcutaneous tissue, and skin jana. Adaptic, sterile 4 x 4's, ABD pad, Webril, cryo unit, and Zurdo wrap were applied to the right lower extremity. Patient tolerated the procedure well, was transferred to the recovery room in stable condition. cc: Bret Cartwright MD
[2019-03-17] MEDS: COGENTIN PO SCH ×4 (00:46→16:19)
[2019-03-17] MEDS: LUMIGAN 0.01% OPH SOLUTION BOTH EYES SCH ×2 (00:47→21:04)
[2019-03-17] MEDS: PERIDEX MT SCH ×3 (00:47→21:04)
[2019-03-17] MEDS: INVEGA PO SCH ×2 (00:47→21:04)
[2019-03-17] MEDS: OXY IR PO PRN ×6 (01:02→21:03)
[2019-03-17] MEDS: AMBIEN PO SCH ×2 (01:14→21:04)
[2019-03-17] MEDS: TYLENOL PO SCH ×4 (03:50→21:00)
[2019-03-17] MEDS: KEFZOL 2 GM/D5W 2 GM/50 ML IVPB IV SCH (03:50)
[2019-03-17 06:44] LABS: HEMOGLOBIN 10.9 g/dL (12.0-16.0)
[2019-03-17 07:24] LABS: AGAP 11; BUN 16 mg/dL (8-22); CALCIUM 8.4 mg/dL (8.8-10.2); CHLORIDE 98 mmol/L (98-107); COSMO 275; CREATININE 0.9 mg/dL (0.5-0.9); ESTIMATED GFR > 60; GLUCOSE 205 mg/dL (70-104); POTASSIUM 4.5 mmol/L (3.5-5.1); SODIUM 134 mmol/L (136-145); TCO2 25 mmol/L (25-35)
[2019-03-17] MEDS: XARELTO PO SCH (07:54)
[2019-03-17] MEDS: NS 1,000 ML IV SCH (08:16)
[2019-03-17] MEDS: TENORMIN PO SCH (08:34)
[2019-03-17] MEDS: GLUCOPHAGE PO SCH (09:22)
--- NOTE | 2019-03-17 11:57 | ORTHOPAEDICS PROGRESS NOTE ---
DATE: 03/17/2019 SUBJECTIVE: The patient is a 63-year-old female who is 1 day status post revision right total knee arthroplasty. She is currently resting comfortably. PHYSICAL EXAMINATION: The patient's wound looks good. There are no signs or symptoms of infection. Calf is soft. She has active dorsiflexion and plantar flexion. LABORATORY DATA: Pending. IMPRESSION: Postoperative day #1, status post revision right total knee arthroplasty. PLAN: At this point, will begin mobilization with Physical Therapy. Will consult Director Trading for discharge planning. All questions were answered. cc: Bret Cartwright MD
[2019-03-18] MEDS: TYLENOL PO SCH ×4 (04:58→21:36)
[2019-03-18] MEDS: XARELTO PO SCH (05:00)
[2019-03-18] MEDS: OXY IR PO PRN ×4 (05:00→21:45)
[2019-03-18 07:06] LABS: HEMATOCRIT 27.1 % (37.0-47.0); HEMOGLOBIN 8.7 g/dL (12.0-16.0)
[2019-03-18] MEDS: PERIDEX MT SCH ×2 (09:57→21:36)
[2019-03-18] MEDS: TENORMIN PO SCH ×2 (09:57→09:59)
[2019-03-18] MEDS: COGENTIN PO SCH ×3 (09:57→21:36)
[2019-03-18] MEDS: GLUCOPHAGE PO SCH (09:57)
--- NOTE | 2019-03-18 12:22 | ORTHOPAEDICS PROGRESS NOTE ---
DATE: 03/18/2019 SUBJECTIVE: The patient is a pleasant 63-year-old female who is 2 days status post revision right total knee arthroplasty. She is currently resting comfortably. OBJECTIVE: On physical examination, the patient's right lower extremity wound looks good. There are no signs or symptoms of infection. Calf is soft. She has active dorsiflexion and plantar flexion. LABORATORY DATA: Her hemoglobin and hematocrit are pending this morning. From yesterday, it was 10.9 and 32.0. IMPRESSION: Postoperative day #2 status post revision right total knee arthroplasty. PLAN: At this point, given the patient is somewhat slow to mobilize with physical therapy, it is felt she would benefit from inpatient rehabilitation. Social Service has been consulted to assist with discharge planning. Will continue to progress with physical therapy with full weightbearing right lower extremity. cc: Bret Cartwright MD
[2019-03-18] MEDS: AMBIEN PO SCH (21:36)
[2019-03-18] MEDS: LUMIGAN 0.01% OPH SOLUTION BOTH EYES SCH (21:36)
[2019-03-18] MEDS: INVEGA PO SCH (21:36)
[2019-03-19] MEDS: TENORMIN PO SCH ×3 (00:14→12:16)
[2019-03-19] MEDS: XARELTO PO SCH (06:26)
[2019-03-19] MEDS: TYLENOL PO SCH ×3 (06:26→10:34)
[2019-03-19] MEDS: OXY IR PO PRN ×2 (06:27→10:37)
[2019-03-19 07:01] LABS: HEMATOCRIT 26.8 % (37.0-47.0); HEMOGLOBIN 8.9 g/dL (12.0-16.0)
[2019-03-19] MEDS: COGENTIN PO SCH ×2 (08:20→12:19)
[2019-03-19] MEDS: PERIDEX MT SCH (08:20)
[2019-03-19] MEDS: GLUCOPHAGE PO SCH (08:20)
[2019-03-19 11:44] VITALS: BP 123/58
[2019-03-19] MEDS ORDERED: PNEUMOVAX 23 IM ONE (12:53)
== END 2019-03-19 14:52 | disposition home health service (06) | DRG 468 ==
LOC: SURHOLD 02:07 → 4N 13:32
PROVIDERS: ADMIT Orthopaedic Surgery Adult Reconstructive Orthopaedic Surgery; ATTEND Orthopaedic Surgery Adult Reconstructive Orthopaedic Surgery